=== PATIENT | female | born 1995 | race Caucasian/White ===

== ENCOUNTER 2018-02-17 18:00 | Emergency (ER) | payer MEDICAID ==
[~2018-02-17] VITALS: Ht 167.6 cm; Wt 70.0 kg
[~2018-02-17 18:00] MED LIST: LEXAPRO10 MG PO; NO CURRENT MEDS; PRILOSEC20 MG/CAP PO; TRAZODONE50 MG PO; ZOFRAN ODT8 MG OR; ZYRTEC10 MG PO
[2018-02-17 20:07] VITALS: BP 121/65
== END 2018-02-17 20:18 | disposition home or self-care (01) ==
LOC: ED 18:00
DX: K52.9 Noninfective gastroenteritis and colitis, unspecified (principal); F17.210 Nicotine dependence, cigarettes, uncomplicated; R10.84 Generalized abdominal pain; R11.0 Nausea; R19.7 Diarrhea, unspecified

== ENCOUNTER 2020-09-05 19:29 | Emergency (ER) | payer OTHER ==
[2020-09-05 22:10] VITALS: BP 127/62
== END 2020-09-05 22:12 | disposition home or self-care (01) | DRG 552 ==
LOC: ED 19:29
DX: S16.1XXA Strain of muscle, fascia and tendon at neck level, initial encounter (principal); S29.012A Strain of muscle and tendon of back wall of thorax, initial encounter; S39.012A Strain of muscle, fascia and tendon of lower back, initial encounter; S50.811A Abrasion of right forearm, initial encounter; T14.8XXA Other injury of unspecified body region, initial encounter; F17.200 Nicotine dependence, unspecified, uncomplicated; V49.40XA Driver injured in collision with unspecified motor vehicles in traffic accident, initial encounter

== ENCOUNTER 2023-06-13 19:17 | Emergency (ER) | payer OTHER ==
[~2023-06-13] VITALS: Ht 167.6 cm; Wt 61.2 kg
[~2023-06-13 19:17] MED LIST changes: +ALPRAZOLAM XR0.5 MG PO; +ISENTRESS HD600 MG PO; +TRUVADA1 TA1 PO
[2023-06-13] MEDS ORDERED: FIORICET PO (20:08)
[2023-06-13] MEDS ORDERED: METHOCARBAMOL500 MG PO (20:09)
[2023-06-13] MEDS ORDERED: MELOXICAM15 MG PO (20:09)
[2023-06-13] MEDS ORDERED: KETOROLAC TROMETHAMINE 30 MG/ML SDV IV ONE (21:20)
[2023-06-13] MEDS ORDERED: DEXAMETHASONE SOD. PHOSPHATE 10 MG/ML VIAL IV ONE (21:20)
[2023-06-13] MEDS ORDERED: MAGNESIUM SULFATE HEPTAHYDRATE 50 ML IV ONE (21:20)
[2023-06-13 21:41] LABS: BASO% 0.2 % (0-3); EOS% 1.6 % (0-8); HEMATOCRIT 36.6 % (37.0-47.0); HEMOGLOBIN 12.4 g/dl (12.0-16.0); IMMATURE GRANULOCYTES 0.1 % (0.0-5.0); LYMPH% 15.3 % (15-41); MEAN CELL VOLUME 98.7 fL CALC (80.0-100.0); MEAN CORPUSCULAR HGB 33.4 pG CALC (26.0-32.0); MEAN CORPUSCULAR HGB CONC 33.9 g/dL CAL (32.0-36.0); MONO% 9.5 % (2-13); NEUT# 12.8 thou/uL (2.00-7.15); NEUT% 73.3 % (42-76); RED BLOOD COUNT 3.71 mill/uL (4.20-5.60); RED CELL DISTRI WIDTH 13.2 % (11.5-15.5)
[2023-06-13 21:50] LABS: ALBUMIN 3.8 g/dL (3.2-5.0); ALKALINE PHOSPHATASE 78 u/l (38-126); ANION GAP 10 (6-22 (CALC)); BUN 8 mg/dL (7-17); BUN/CREATININE RATIO 15 (12-20 (CALC)); CARBON DIOXIDE 25 mmol/l (22-30); CHLORIDE 109 mmol/l (95-108); CREATININE 0.6 mg/dL (0.5-1.0); GFR FOR AFR.AMER. > 60 ML/MIN (>=60 (CALC)); GFR OTHER RACES > 60 ML/MIN (>=60 (CALC)); POTASSIUM 3.8 mmol/l (3.5-5.1); SODIUM 139 mmol/l (137-146)
[2023-06-13 21:53] LABS: BILIRUBIN, TOTAL 0.2 mg/dL (0.02-1.3); SGOT/AST 45 u/l (14-36); TOTAL PROTEIN 6.4 g/dL (6.3-8.2)
[2023-06-13 22:31] LABS: BETA-HCG, QUANT(RESULT NUMBER) <2 mIU/mL
[2023-06-13 23:30] VITALS: BP 100/51
[2023-06-13 23:45] VITALS: BP 101/56
[2023-06-14] VITALS: BP 105/57
[2023-06-14] MEDS ORDERED: MORPHINE SULFATE 4 MG/ML VIAL IV ONE (00:05)
[2023-06-14] MEDS ORDERED: PROMETHAZINE HCL 25 MG/TAB PO ONE (00:05)
[2023-06-14 00:15] VITALS: BP 94/55
[2023-06-14 00:30] VITALS: BP 111/64
[2023-06-14 00:45] VITALS: BP 118/65
[2023-06-14 01:10] VITALS: BP 118/65
== END 2023-06-14 01:15 | disposition home or self-care (01) | DRG 103 ==
LOC: ED 19:17
PROVIDERS: Internal Medicine
DX: R51.9 Headache, unspecified (principal); J34.89 Other specified disorders of nose and nasal sinuses; D72.829 Elevated white blood cell count, unspecified; F17.210 Nicotine dependence, cigarettes, uncomplicated; T50.916A Underdosing of multiple unspecified drugs, medicaments and biological substances, initial encounter; Z91.128 Patient's intentional underdosing of medication regimen for other reason; Z20.822 Contact with and (suspected) exposure to COVID-19
CPT/HCPCS: J3475